=== PATIENT | female | born 1960 | race Caucasian/White ===

== ENCOUNTER → 2016-03-10 13:49 | Outpatient (CLI) | payer MEDICARE ==
[2014-09-04 08:12] VITALS: BMI 27.0
[~2016-03-10 13:49] MED LIST: AZULFIDINE500 MG PO; CALCIUM 600+D T1 TA1 PO; CARAFATE1 G; CYMBALTA20 MG PO; CYMBALTA60 MG PO; DEPAKOTE500 MG PO; FOLIC ACID1 MG PO; MULTIPLE VITAMI1 TA1 PO; PEPCID20 MG PO; PRILOSEC20 MG PO; WELLBUTRIN SR150 MG PO
== END | disposition home or self-care (01) ==
LOC: D.MRI 13:49
DX: M25.511 Pain in right shoulder (principal)

== ENCOUNTER → 2016-04-08 12:42 | Outpatient (CLI) | payer MEDICARE ==
[2014-09-04 08:12] VITALS: BMI 27.0
== END | disposition home or self-care (01) ==
LOC: D.US 04-07 15:30
DX: M79.605 Pain in left leg (principal); R60.0 Localized edema